=== PATIENT | female | born 1965 | race Caucasian/White ===

== ENCOUNTER 2016-11-27 13:58 | Emergency (ER) | payer BC ==
[~2016-11-27] VITALS: Ht 157.5 cm; Wt 91.6 kg
[2016-11-27 14:10] VITALS: BP 164/101
[2016-11-27] MEDS ORDERED: HYDR-971 PO (14:47)
[2016-11-27] MEDS ORDERED: AMOX875T PO (14:47)
--- NOTE | 2016-11-27 14:49 | PHYS DOC ---
General Chief Complaint: DENTAL PROBLEM Stated Complaint: DENTAL PAIN Time Seen by MD: 14:25 Source: patient Exam Limitations: no limitations Problems: History of Present Illness Initial Comments Pt is 51/F to ED c/o dental pain. Pt states past two weeks worsening left lower molar pain. Pt has severe global dental caries, needs root canal right upper molars cannot afford it but it isn' t symptomatic currently. L lower molar pain worsening x 2 wks, 04/12 has tried orajel and OTC meds no relief. L lower jaw swelling today pt came for eval. No fever/chills/malaise/n/v/dysphagia/hoarseness/dyspnea. Timing/Duration: gradual, other Severity: severe Location: dental Prearrival Treatment: over the counter meds Modifying Factors: improves with other Associated Symptoms: facial pain/swelling, tooth pain Allergies: Coded Allergies: gabapentin (Verified Allergy, Unknown, Nausea and Vomiting, 11/27/16) Past Medical History Medical History: hypertension (arthritis) Surgical History: noncontributory Social History Smoker: quit greater than 1 year Alcohol: none Drugs: none Constitutional: denies chills, denies diaphoresis, denies fever, denies malaise Ears: denies dizziness, denies pain, denies tinnitus Nose: denies clots, denies congestion, denies epistaxis Mouth: see HPI Throat: denies pain, denies swelling, denies neck stiffness Respiratory: denies cough, denies shortness of breath Cardiovascular: denies chest pain, denies palpitations Gastrointestinal: denies diarrhea, denies nausea, denies vomiting Neurological: denies headache, denies numbness, denies paresthesia Physical Exam General Appearance: mild distress Eyes: bilateral eye normal inspection, bilateral eye PERRL, bilateral eye EOMI Nose: normal inspection Mouth/Throat: other (severe global caries, left lower molar gingival swell no purulence, mild left lower facial swelling no mandible TTP) Neck: supple, trachea midline Cardiovascular/Respiratory: normal breath sounds, no respiratory distress Neurologic/Psychiatric: change control specialist II-XII nml as tested, no motor/sensory deficits, alert, normal mood/affect, oriented x 3 Skin: normal color, warm/dry Departure Time of Disposition: 14:47 Disposition: 01 HOME, SELF-CARE Diagnosis: dental abscess Condition: GOOD Patient Instructions: Dental Abscess Additional Instructions: Aggressive hydration with gatorade, water. OTC ibuprofen for baseline pain control. Listerine gargle/rinse three times daily after brushing/flossing. Rx: amoxicillin, norco 5mg #20 You must follow up with a dentist to resolve this condition. Follow up with [facility]. Return to ED with new or changing symptoms. ERIN MALDONADO DO November 27, 2016 14:49
[2016-11-27] MEDS ORDERED: HYDROcodone/APAP 10/325 1 TAB TABLET PO ONE (15:15)
[2016-11-27] MEDS ORDERED: ONDANSETRON ODT 4 MG TAB.RAPDIS PO ONE (15:15)
[2016-11-27] MEDS ORDERED: AMOXICILLIN 500 MG CAPSULE PO ONE (15:15)
== END 2016-11-27 15:03 | disposition home or self-care (01) ==
LOC: ER 13:58
DX: K04.7 Periapical abscess without sinus (principal); I10 Essential (primary) hypertension; M19.90 Unspecified osteoarthritis, unspecified site; Z87.891 Personal history of nicotine dependence; Z88.8 Allergy status to other drugs, medicaments and biological substances
CPT/HCPCS: 99284; Q0162